=== PATIENT | female | born 1995 | race Caucasian/White ===

== ENCOUNTER → 2023-01-10 14:55 | Outpatient (CLI) | payer BC, SELFPAY ==
[2023-01-10 15:02] LABS: Influenza A, PCR Not Detected (NotDetected); Influenza B, PCR Not Detected (NotDetected)
[2023-01-10 15:41] LABS: Coronavirus 19, PCR Detected (NotDetected)
== END ==
PROVIDERS: Visit Provider Physician Assistant
DX: U07.1 COVID-19 (principal); Z20.822 Contact with and (suspected) exposure to COVID-19
CPT/HCPCS: 87636

== ENCOUNTER 2023-07-06 13:30 | Emergency (ER) | payer BC, SELFPAY ==
[2023-07-06 15:00] VITALS: PULSE 108; RESP 18; TEMP 36.6; O2SAT 100; BMI 28.5
--- NOTE | 2023-07-06 15:26 | EXP.UTC ---
Discharge Plan Disposition Patient Disposition: Home, Self-Care Condition: Good Prescriptions Prescriptions: New azithromycin 250 mg tablet 250 mg PO DIRECTED Qty: 6 0RF Rx Instructions: Take two (2) tablets on day #1, then one (1) tablet day #2 thru #5 fluticasone propionate 50 mcg/actuation spray,suspension 1 spray intranasal DAILY Qty: 9.9 0RF No Action buspirone 7.5 mg tablet 7.5 mg PO DAILY Patient Comments: TAKE 1 TABLET BY MOUTH TWICE DAILY norgestimate-ethinyl estradiol [Sprintec (28)] 0.25-35 mg-mcg tablet 1 tab PO DAILY Referrals Follow up/Referrals: Emily Zambrano PA [Primary Care Provider] - See instructions Activity Restrictions/Add. Instructions Additional Instructions/Restrictions: Start antibiotic patient to take as ordered for a full length of time even if you feel better. Sinus infections do not get better overnight. It may take 2-3 days to notice much improvement so be sure to use conservative measures as discussed for symptoms. Flonase 1 spray each nostril daily to help with nasal congestion, sinus and ear pressure/information Increase fluids Humidifier/vaporizer as needed Tylenol and ibuprofen as needed for fever or pain. If symptoms do not improve or get worse return or be seen in the ER Follow-up with primary care this week Clinical Impressions Clinical Impression: Sinusitis Instructions Patient Instructions: DI for Sinusitis Discharge ED Provider: Dax ([facility] [facility] [place] General Stated complaint: sninus pressure headache congestion cough Mode of Arrival: Ambulatory Source of Information: Patient Limitations: No Limitations Time Seen by Provider: 07/06/23 15:26 Description of Symptoms (Recalled from Triage Doc. by RN): sinus pressure, tenderness, face face pain, green drainage HEENT Symptoms (Recalled from RN notes): Yes Resp Symptoms (Recalled from RN notes): No Skin Symptoms (Recalled from RN notes): No MS Symptoms (Recalled from RN notes): No Functional Status (Recalled from RN notes): n/a History of Present Illness Provider Complaint: 28 yr old female presents for c/o sinus pressure, tenderness, face face pain, green drainage Related Data Home Medications Medication Instructions Recorded Confirmed buspirone 7.5 mg tablet 7.5 mg PO DAILY 02/27/23 07/06/23 norgestimate 0.25 mg-ethinyl 1 tab PO DAILY 02/27/23 07/06/23 estradiol 35 mcg tablet (Sprintec (28)) Previous Rx's Medication Instructions Recorded azithromycin 250 mg tablet 250 mg PO DIRECTED #6 tabs 07/06/23 fluticasone propionate 50 1 spray intranasal DAILY #9.9 mL 07/06/23 mcg/actuation nasal spray,suspension Allergies Allergy/AdvReac Type Severity Reaction Status Date / Time Penicillins Allergy Verified 07/06/23 15:26 Worker's Comp Is this a Worker's Comp case?: No [facility] Disclaimer: The information contained in this section may have been updated after the patient was seen, as this information can be updated by other users. Medical History (Reviewed 07/06/23 @ 15:28 by Ann-Marie Verduzco ([facility]), [employer]) Perforated left tympanic membrane on examination Anxiety Sarcoidosis of lung Family History (Reviewed 07/06/23 @ 15:28 by Ann-Marie Verduzco ([facility]), [employer]) Diabetes Coronary artery disease Hyperlipidemia Heart attack Hypertension Social History (Reviewed 07/06/23 @ 15:28 by Ann-Marie Verduzco ([facility]), [employer]) Smoking Status: Never smoker alcohol intake: current alcohol intake frequency: holidays/special occasions only current occupational status: employed Travel in the last 8 weeks: None ROS Obtained: Yes All systems reviewed & no additional complaints except as documented Constitutional Constitutional: Reports system reviewed and no additional complaints, except as documented and Reports headache(s) Eyes Eyes: Reports system reviewed and no additional complaints, except as documented ENT Ears, Nose, Mouth, and Throat: Reports system reviewed and no additional complaints, except as documented, Reports as per HPI, Reports headache(s), Reports sinus pain and Reports sinus pressure Cardiovascular Cardiovascular: Reports system reviewed and no additional complaints, except as documented Respiratory Respiratory: Reports system reviewed and no additional complaints, except as documented Musculoskeletal Musculoskeletal: Reports system reviewed and no additional complaints, except as documented Integumentary/Breasts Skin/Breast: Reports system reviewed and no additional complaints, except as documented Neurologic Neurologic: Reports system reviewed and no additional complaints, except as documented and Reports headache(s) Endocrine Endocrine: Reports system reviewed and no additional complaints, except as documented Hematologic/Lymphatic Henatologic/Lymphatic: Reports system reviewed and no additional complaints, except as documented Allergic/Immunologic Allergic/Immunologic: Reports system reviewed and no additional complaints, except as documented Physical Exam General General appearance: alert and in no apparent distress Head Head exam: atraumatic Eye Eye exam: Present normal appearance and PERRL ENT ENT exam: Present normal oropharynx and TM's normal bilaterally Expanded ENT Exam Nose exam: Present sinus tenderness Respiratory Respiratory exam: Present normal lung sounds bilaterally Cardiovascular Cardiovascular exam: Present regular rate and normal rhythm Neurological Exam Neurological exam: Present alert and oriented X3 Skin Skin exam: Present warm and intact Medical Decision Making Medical Records Medical records reviewed: Yes I reviewed the patient's medical records. Laci Inquiry Pt receiving controlled substance: No Laci was queried for this patient: No Vital Signs: 07/06/23 15:00 Temperature 97.9 F Temperature Source Oral Pulse Rate [Right Radial] 108 H Respiratory Rate 18 02 Sat by Pulse Oximetry 100 Oxygen Delivery Method Room Air
[2023-07-06 15:43] VITALS: BP 166/91; PULSE 108; RESP 18; TEMP 36.6; O2SAT 100
--- NOTE | 2023-07-06 15:43 | PC.NURSE ---
Pt is very anxious about being in a medical setting.
== END 2023-07-06 15:43 | disposition home or self-care (01) ==
PROVIDERS: Emergency Provider Nurse Practitioner Family; PCP Physician Assistant
DX: J01.90 Acute sinusitis, unspecified (principal); R51.9 Headache, unspecified; R09.81 Nasal congestion
CPT/HCPCS: 99204; 99212; G0463

== ENCOUNTER 2023-07-09 11:00 | Outpatient (POV) | payer BC, SELFPAY | END 2023-07-09 23:59 | disposition home or self-care (01) | LOC: SC 11:01 | PROVIDERS: Visit Provider Specialist/Technologist | DX: Z00.00 Encounter for general adult medical examination without abnormal findings (principal) ==

== ENCOUNTER 2024-02-01 09:48 | Emergency (ER) | payer BC, SELFPAY ==
[2024-02-01 10:03] VITALS: BP 153/93; PULSE 80; RESP 18; TEMP 36.7; O2SAT 99; BMI 28.8
--- NOTE | 2024-02-01 10:09 | EXP.UTC ---
Discharge Plan Disposition Patient Disposition: Home, Self-Care Condition: Good Prescriptions Prescriptions: New moxifloxacin [Vigamox] 0.5 % drops 1 drp Eye-Left TID 7 Days Qty: 3 0RF No Action buspirone 7.5 mg tablet 7.5 mg PO DAILY Patient Comments: TAKE 1 TABLET BY MOUTH TWICE DAILY norgestimate-ethinyl estradiol [Sprintec (28)] 0.25-35 mg-mcg tablet 1 tab PO DAILY Referrals Follow up/Referrals: Emily Zambrano PA [Primary Care Provider] - See instructions Activity Restrictions/Add. Instructions Additional Instructions/Restrictions: Use the eye drops as directed. Strict hand washing in the house hold, because conjunctivitis is very contagious. Follow up with your regular doctor. Don't wear your contact lens for at least 1 week (unless you are told different by your eye doctor). GO TO THE ER FOR ANY WORSENING SYMPTOMS OR CONCERNS Clinical Impressions Clinical Impression: Conjunctivitis of left eye, Wears contact lenses Instructions Patient Instructions: DI for Conjunctivitis Print Language Print Language: Greenlandic Discharge ED Provider: [facility] General Stated complaint: Left eye Discomfort and discharge Mode of Arrival: Ambulatory Source of Information: Patient Time Seen by Provider: 02/01/24 10:09 Description of Symptoms (Recalled from Triage Doc. by RN): POSSIBLE SCRATCH ON LEFT EYE, REDNESS AND DISCHARGE HEENT Symptoms (Recalled from RN notes): Yes Resp Symptoms (Recalled from RN notes): No Skin Symptoms (Recalled from RN notes): No MS Symptoms (Recalled from RN notes): No Functional Status (Recalled from RN notes): WNL History of Present Illness Provider Complaint: She states that for the past 2 days she has had left eye redness and irritation. She denies any known injury or foreign body. She is a contact lens wearer. Related Data Home Medications ?Medication ?Instructions ?Recorded ?Confirmed buspirone 7.5 mg tablet 7.5 mg PO DAILY 02/27/23 07/23/23 norgestimate 0.25 mg-ethinyl 1 tab PO DAILY 02/27/23 02/01/24 estradiol 35 mcg tablet (Sprintec (28)) Previous Rx's ?Medication ?Instructions ?Recorded moxifloxacin 0.5 % eye drops 1 drp Eye-Left TID 7 days #3 mL 02/01/24 (Vigamox) Allergies Allergy/AdvReac Type Severity Reaction Status Date / Time Penicillins Allergy Verified 07/23/23 15:55 Worker's Comp Is this a Worker's Comp case?: No [facility] Disclaimer: The information contained in this section may have been updated after the patient was seen, as this information can be updated by other users. Medical History (Updated 02/01/24 @ 10:58 by Victorino Mensah APRN) Conductive hearing loss Perforated left tympanic membrane on examination Anxiety Sarcoidosis of lung Family History Other Coronary artery disease Diabetes Heart attack Hyperlipidemia Hypertension Social History Smoking Status: Never smoker alcohol intake: current alcohol intake frequency: holidays/special occasions only current occupational status: employed ROS Obtained: Yes All systems reviewed & no additional complaints except as documented Constitutional Constitutional: Denies chills and Denies fever(s) Eyes Eyes: Reports as per HPI, Denies change in vision and Reports eye discharge ENT Ears, Nose, Mouth, and Throat: Denies dizziness, Denies otalgia and Denies sore throat Cardiovascular Cardiovascular: Denies chest pain Respiratory Respiratory: Denies shortness of breath, Denies chest congestion, Denies cough, Denies stridor and Denies wheezing Gastrointestinal Gastrointestingal: Denies nausea or vomiting Musculoskeletal Musculoskeletal: Reports system reviewed and no additional complaints, except as documented and Denies arthralgias Integumentary/Breasts Skin/Breast: Denies rash Neurologic Neurologic: Denies dizziness and Denies paresthesias Allergic/Immunologic Allergic/Immunologic: Denies wheezing Physical Exam General General appearance: alert and in no apparent distress Head Head exam: atraumatic, normocephalic and normal inspection Eye Eye exam: Present PERRL and EOMI Expanded Eye Exam Eyelids: left: normal inspection and right: erythema Pupils: Left: size (2), Right: size (2) and Bilateral: regular, round and reactive Sclera/Conjunctival: left: normal inspection and right: injection and exudate ENT ENT exam: Present normal exam, normal oropharynx, mucous membranes moist, TM's normal bilaterally and normal external ear exam Neck Neck exam: Present normal inspection, full ROM and trachea midline; Absent meningismus or lymphadenopathy Chest Chest inspection: Present normal inspection and symmetric chest wall rise; Absent tenderness Respiratory Respiratory exam: Present normal lung sounds bilaterally; Absent respiratory distress Cardiovascular Cardiovascular exam: Present regular rate and normal rhythm; Absent JVD Abdominal Exam Abdominal exam: Present soft and normal bowel sounds; Absent distention, tenderness or guarding Extremities Exam Extremities exam: Present normal inspection, full ROM and normal capillary refill; Absent calf tenderness Back Exam Back exam: Present normal inspection; Absent tenderness Neurological Exam Neurological exam: Present alert and oriented X3 Psychiatric Psychiatric exam: Present normal affect and normal mood Skin Skin exam: Present warm, dry, intact and normal color Lymphatic Lymphatic Findings: no adenopathy Medical Decision Making Medical Records Medical records reviewed: No I reviewed the patient's medical records. Screening: Per USPSTF and CDC recommendations, given the prevalence of disease in our region, it is our hospital?s policy to screen for HIV and viral Hepatitis for all patients aged 18 and over and those with ongoing risk factors. Laci Inquiry Pt receiving controlled substance: No Vital Signs: 02/01/24 10:03 Temperature 98.1 F Temperature Source Oral Pulse Rate [Left Radial] 80 Respiratory Rate 18 Blood Pressure [Left Arm] 153/93 H Blood Pressure Mean [Left Arm] 113 02 Sat by Pulse Oximetry 99 Procedures Risk/Benefits of Procedure(s) Were Explained: Yes Eye Exam/FB Removal Location: eye (L) Topical anesthetic used: tetracaine Fluorescein Stick(s) used: Yes Time Out performed: Yes Procedure performed under: direct visualization with magnification Foreign body: other (none) Evidence of corneal penetration: No Eye irrigated w/saline (#ccs): 25 Patient tolerated procedure: well and no complications Complications: other (She tolerated this well, no corneal abrasion, foreign body, and evidence of keratitis was noted. )
[2024-02-01 11:01] VITALS: BP 153/93; PULSE 80; RESP 18; TEMP 36.7
[2024-02-01] MEDS: TETRACAINE 0.5% OPTH SOL 15ML OP (11:06)
[2024-02-01] MEDS: EYE WASH IRRIGATION SOLN 118ML BOTTLE 120 ML OP (11:06)
== END 2024-02-01 11:06 | disposition home or self-care (01) ==
PROVIDERS: Emergency Provider Nurse Practitioner Family; PCP Physician Assistant
DX: H10.32 Unspecified acute conjunctivitis, left eye (principal); H57.12 Ocular pain, left eye; H57.9 Unspecified disorder of eye and adnexa; Z97.3 Presence of spectacles and contact lenses
CPT/HCPCS: 99212; G0381

== ENCOUNTER 2024-05-27 01:49 | Day surgery (SDC) | payer BC, SELFPAY ==
[2024-05-27] VITALS (22 sets, daily range): BP systolic 107–153; BP diastolic 62–103; PULSE 70–136; RESP 16–18; TEMP 36.6–43; O2SAT 96–100; BMI 29.0
[2024-05-27] MEDS: MIDAZOLAM 5MG/ML 1ML VIAL 5 MG IM (02:07)
--- NOTE | 2024-05-27 02:29 | CT_ITS ---
PROCEDURE INFORMATION: Exam: CT Abdomen And Pelvis With Contrast Exam date and time: 05/27/2024 4:48 AM Age: 29 years old Clinical indication: Abdominal pain; Additional info: R mid abd pain worsening w/ nausea TECHNIQUE: Imaging protocol: Computed tomography of the abdomen and pelvis with contrast. Radiation optimization: All CT scans at this facility use at least one of these dose optimization techniques: automated exposure control; mA and/or kV adjustment per patient size (includes targeted exams where dose is matched to clinical indication); or iterative reconstruction. Contrast material: ISOVUE; Contrast volume: 75 ml; Contrast route: IV; COMPARISON: No relevant prior studies available. FINDINGS: Lungs: Lung bases are clear as visualized. Heart: Base of heart is unremarkable as visualized. Liver: Superior right hepatic lobe hypodensity, subcentimeter, likely medical field representative of benign cyst. Gallbladder and biliary ducts: Normal. No calcified stones. No ductal dilation. Pancreas: Normal. No ductal dilation. Spleen: Normal. No splenomegaly. Adrenal glands: Normal. No mass. Kidneys and ureters: Normal. No hydronephrosis. Stomach and bowel: Moderate to severe colonic stool burden. Appendix: Fluid-filled and dilated appendix reaching up to 1 cm in diameter. Periappendiceal fat stranding is seen. Appendiceal gordon appear to enhance. Intraperitoneal space: Pelvic physiologic free fluid. Vasculature: Unremarkable. No abdominal aortic aneurysm. Lymph nodes: Prominent right lower quadrant lymph nodes. Urinary bladder: Unremarkable as visualized. Reproductive: Unremarkable as visualized. Bones/joints: Unremarkable. No acute fracture. Soft tissues: Unremarkable. IMPRESSION: Appendicitis without evidence for rupture or rim enhancing collection.
--- NOTE | 2024-05-27 02:42 | PC.NURSE ---
Patient refuses to wear monitoring equipment. Will not wear blood pressure cuff, O2 probe, or cardiac monitoring. Patient is alert and oriented. Risks/benefits explained.
--- NOTE | 2024-05-27 03:07 | ED_ITS ---
Discharge Plan Disposition Patient Disposition: Admitted Condition: Fair Prescriptions Prescriptions: No Action buspirone 7.5 mg tablet 7.5 mg PO DAILY Patient Comments: TAKE 1 TABLET BY MOUTH TWICE DAILY norgestimate-ethinyl estradiol [Sprintec (28)] 0.25-35 mg-mcg tablet 1 tab PO DAILY moxifloxacin [Vigamox] 0.5 % drops 1 drp Eye-Left TID 7 Days Qty: 3 0RF Referrals Follow up/Referrals: Emily Zambrano PA [Primary Care Provider] - See instructions Clinical Impressions Clinical Impression: Panic attack, Right sided abdominal pain, Anxiety, Acute appendicitis Instructions Patient Instructions: DI for Acute Abdominal Pain Print Language Print Language: Divehi Discharge ED Provider: Poonam Ayala General Adult HPI General Chief complaint: Abdominal Pain Stated complaint: abd pain, nausea, vomiting Time Seen by Provider: 05/27/24 02:00 Mode of Arrival: Ambulatory Source of Information: Patient Description of Symptoms (Recalled from ER Triage Doc. by RN): Patient complains of abdominal pain since 9pm. States it is to the right side of her belly button. Patient states she has severe anxiety. History of Present Illness HPI narrative: 29-year-old female presents to the ER with complaints of 5 hours of right sided abdominal pain. She states it is just to the right of the bellybutton seems to be getting worse. She has had nausea but no other associated symptoms. She has severe anxiety and presents hyperventilating, tearful, shaking, and refusing to be touched by nursing, screaming when the blood pressure cuff inflates. She reports severe anxiety of anything medical because I cannot control my body . She does not report any fevers, chills, chest pain, cough, congestion, dysuria, hematuria, or other associated symptoms at this time Related Data Home Medications ?Medication ?Instructions ?Recorded ?Confirmed buspirone 7.5 mg tablet 7.5 mg PO DAILY 02/27/23 07/23/23 norgestimate 0.25 mg-ethinyl 1 tab PO DAILY 02/27/23 02/01/24 estradiol 35 mcg tablet (Sprintec (28)) Previous Rx's ?Medication ?Instructions ?Recorded moxifloxacin 0.5 % eye drops 1 drp Eye-Left TID 7 days #3 mL 02/01/24 (Vigamox) Allergies Allergy/AdvReac Type Severity Reaction Status Date / Time Penicillins Allergy Verified 07/23/23 15:55 [facility] Disclaimer: The information contained in this section may have been updated after the patient was seen, as this information can be updated by other users. Medical History (Updated 05/27/24 @ 06:08 by Poonam Ayala MD) Conductive hearing loss Perforated left tympanic membrane on examination Anxiety Sarcoidosis of lung Family History Other Coronary artery disease Diabetes Heart attack Hyperlipidemia Hypertension Social History Smoking Status: Never smoker alcohol intake: current alcohol intake frequency: holidays/special occasions only current occupational status: employed Travel in the last 8 weeks: None Have you lived/traveled outside [place] in past 30 days?: No Contact w/someone who lives/traveled outside US past 30 days?: No Exposure to someone with infectious disease in past 14 days?: No Do you have a fever (greater than 100.4 F or 38 C)?: No Have you tested positive for COVID-19: No Exposed to someone with COVID-19 in past 14 days?: No Do you have a sore throat?: No Do you have a cough?: No Do you have any weakness?: No Do you have any diarrhea?: No Are you experiencing any unusual bleeding?: No Do you have any muscle aches/pain?: No Do you have any abdominal pain?: Yes Are you experiencing loss of taste or smell?: No ROS Obtained: Yes Systems reviewed as appropriate & no additional complaints except as documented Per HPI Physical Exam General General appearance: alert, anxious and in distress (With severe anxiety) Comment: Nontoxic Head Head exam: atraumatic and normocephalic Eye Eye exam: Present PERRL and EOMI ENT ENT exam: Present mucous membranes moist Neck Neck exam: Present normal inspection and full ROM Chest Chest inspection: Present symmetric chest wall rise Respiratory Respiratory exam: Present normal lung sounds bilaterally; Absent respiratory distress, wheezes or stridor Cardiovascular Cardiovascular exam: Present normal rhythm and tachycardia Abdominal Exam Abdominal exam: Present soft, tenderness (Tenderness to palpation of the right periumbilical area; mild right upper quadrant tenderness, no right lower quadrant tenderness) and guarding (Voluntary); Absent distention, rebound or rigidity Extremities Exam Extremities exam: Present full ROM; Absent edema Neurological Exam Neurological exam: Present alert and oriented X3; Absent motor sensory deficit Psychiatric Psychiatric exam: Present anxious (Severely anxious, tearful, shaky, hyperventilating, being irrational but able to redirect with significant effort) Skin Skin exam: Present warm and dry Medical Decision Making Medical Records Medical records reviewed: Yes I reviewed the patient's medical records. Screening: Per USPSTF and CDC recommendations, given the prevalence of disease in our region, it is our hospital?s policy to screen for HIV and viral Hepatitis for all patients aged 18 and over and those with ongoing risk factors. MR Comment: Patient was seen in [facility] in February 2020 for and prescribed moxifloxacin for conjunctivitis Laci Inquiry Pt receiving controlled substance: No Vital Signs: 05/27/24 02:00 05/27/24 03:29 05/27/24 03:30 Temperature 97.9 F Temperature Source Oral Pulse Rate 89 87 Pulse Rate [Right Radial] 136 H Respiratory Rate 18 Blood Pressure Blood Pressure [Right Arm] 153/103 H Blood Pressure Mean [Right Arm] 119 Blood Pressure Source Blood Pressure Source [Right Arm] Automatic Cuff Blood Pressure Position Blood Pressure Position [Right Arm] Supine 02 Sat by Pulse Oximetry 98 100 100 Oxygen Delivery Method Room Air 05/27/24 03:45 05/27/24 04:20 05/27/24 04:30 Temperature Temperature Source Pulse Rate 94 H 87 88 Pulse Rate [Right Radial] Respiratory Rate Blood Pressure Blood Pressure [Right Arm] Blood Pressure Mean [Right Arm] Blood Pressure Source Blood Pressure Source [Right Arm] Blood Pressure Position Blood Pressure Position [Right Arm] 02 Sat by Pulse Oximetry 99 100 99 Oxygen Delivery Method 05/27/24 04:54 05/27/24 05:00 05/27/24 05:15 Temperature Temperature Source Pulse Rate 89 82 87 Pulse Rate [Right Radial] Respiratory Rate Blood Pressure Blood Pressure [Right Arm] Blood Pressure Mean [Right Arm] Blood Pressure Source Blood Pressure Source [Right Arm] Blood Pressure Position Blood Pressure Position [Right Arm] 02 Sat by Pulse Oximetry 98 98 98 Oxygen Delivery Method 05/27/24 05:30 05/27/24 05:45 05/27/24 06:19 Temperature 98.9 F Temperature Source Oral Pulse Rate 86 73 Pulse Rate [Right Radial] 78 Respiratory Rate 16 Blood Pressure Blood Pressure [Right Arm] 148/90 H Blood Pressure Mean [Right Arm] 109 Blood Pressure Source Blood Pressure Source [Right Arm] Automatic Cuff Blood Pressure Position Blood Pressure Position [Right Arm] Supine 02 Sat by Pulse Oximetry 99 99 98 Oxygen Delivery Method 05/27/24 06:30 Temperature 98.9 F Temperature Source Oral Pulse Rate 78 Pulse Rate [Right Radial] Respiratory Rate 16 Blood Pressure 148/90 H Blood Pressure [Right Arm] Blood Pressure Mean [Right Arm] Blood Pressure Source Automatic Cuff Blood Pressure Source [Right Arm] Blood Pressure Position Supine Blood Pressure Position [Right Arm] 02 Sat by Pulse Oximetry Oxygen Delivery Method Room Air Lab Data Lab Results 05/27/24 03:21: Sodium 137, Potassium 4.5, Chloride 104, Carbon Dioxide 25, Anion Gap 12.5, BUN 14, Creatinine 0.60, Estimated Creat Clear 185, Estimated GFR 119, Est GFR ( Amer) 144, Glucose 107 H, Calcium 9.6, Total Bilirubin 0.8, AST 41 H, ALT 19, Alkaline Phosphatase 53, Total Protein 7.4, Albumin 4.6, Globulin 2.8, Albumin/Globulin Ratio 1.6, Serum HCG, Qual Negative 05/27/24 04:42: WBC 16.0 H, RBC 5.03, Hgb 14.3, Hct 42.8, MCV 85.1, MCH 28.4, MCHC 33.4, RDW 12.3, Plt Count 195, MPV 10.4, Neut % (Auto) 86.9 H, Lymph % (Auto) 4.8 L, [place] % (Auto) 6.8, Eos % (Auto) 0.0 L, Baso % (Auto) 0.3, Neut # (Auto) 13.9 H, Lymph # (Auto) 0.8, [place] # (Auto) 1.1 H, Eos # (Auto) 0.0, Baso # (Auto) 0.1, Total Counted 100, Neutrophils % (Manual) 92 H, Lymphocytes % (Manual) 5 L, Monocytes % (Manual) 3, Platelet Estimate Normal, Stomatocytes 1+, Lactate 1.7 05/27/24 06:02: Urine Color Yellow, Urine Appearance Clear, Urine pH 7.0, Ur Specific [place] <= 1.005, Urine Protein Negative, Urine Glucose (UA) Negative, Urine Ketones Negative, Urine Blood Negative, Urine Nitrate Negative, Urine Bilirubin Negative, Urine Urobilinogen 0.2, Ur Leukocyte Esterase Negative 05/27/24 04:42 05/27/24 03:21 Orders (Tests/Meds): ED MEDICATIONS Discontinued Medications Generic Name Dose Route Start Last Admin Trade Name Kiera PRN Reason Stop Dose Admin Alprazolam 2 mg 05/27/24 03:21 05/27/24 03:26 Alprazolam 1mg Tablet PO 05/27/24 03:22 Not Given ONCE ONE Alprazolam 2 mg 05/27/24 03:25 05/27/24 03:26 Alprazolam 0.5mg Tablet PO 05/27/24 03:26 2 mg ONCE ONE Administration Haloperidol Lactate 5 mg 05/27/24 04:13 05/27/24 04:15 Haloperidol Lactate 5 Mg/Ml Vial IM 05/27/24 04:14 5 mg ONCE ONE Administration Cefepime HCl 2 gm/ Sodium 100 mls @ 200 mls/hr 05/27/24 06:02 05/27/24 06:05 Chloride IV 05/27/24 06:31 200 mls/hr ONCE ONE Administration Metronidazole 500 mg in 100 mls @ 100 mls/hr 05/27/24 06:02 05/27/24 06:09 Flagyl 500mg/100ml Ivpb IV 05/27/24 07:01 100 mls/hr ONCE ONE Administration Iopamidol 75 ml 05/27/24 04:54 05/27/24 04:55 Iopamidol-370 (76%);100ml Bottle IV 05/27/24 04:55 75 ml ONCE ONE Administration Lorazepam 1 mg 05/27/24 02:29 05/27/24 02:45 Lorazepam 1mg Tablet PO 05/27/24 02:30 Not Given ONCE ONE Midazolam HCl 5 mg 05/27/24 02:04 05/27/24 02:07 Midazolam 5mg/Ml 1ml Vial IM 05/27/24 02:05 5 mg ONCE ONE Administration ORDERS Category Date Time Status CT abdomen pelvis w con Stat Cat Scan 05/27/24 02:29 Completed Complete Blood Count Auto Diff Stat Lab 05/27/24 04:42 Completed Comprehensive Metabolic Panel Stat Lab 05/27/24 03:21 Completed HCG Qualitative, Serum Stat Lab 05/27/24 03:21 Completed Lactic Acid Stat Lab 05/27/24 04:42 Completed Urinalysis and Microscopic Stat Lab 05/27/24 06:02 Results Medical Decision Narrative: In summary, this 29-year-old female with comorbidities described in the HPI which are not at goal therapy presents to the emergency department today with right side abdominal pain. On initial evaluation patient is tachycardic, anxious, crying, shaking, exam otherwise notable for mid abdominal tenderness to palpation with voluntary guarding, no rebound. Differential diagnosis includes but is not limited to anxiety, panic attack, cholelithiasis, cholecystitis, transaminitis, appendicitis, constipation, mesenteric adenitis, viral syndrome, UTI, , among others. Based on these concerns, I ordered serum labs, CT imaging, urine studies. Patient was so profoundly anxious that she asked about every single thing I examined during the physical exam. She would not allow vitals to be taken without screaming and jumping. She would not allow nursing to obtain an IV. She wanted something to sedate and take her anxiety away. After discussion, she agreed to IM Versed. This was administered but was not enough. She reportedly takes 3 mg of p.o. Xanax before any medical encounter and then often gets additional medications when she arrives. She does not know what else she gets given. She received oral Xanax in addition to the Versed that she has already received. We were able to obtain a small amount of blood but she then jumped, screamed, and ripped out her IV. She was screaming and yelling about how painful the tourniquet was before she was even stuck with a needle for repeat IV attempt. It had been 2-1/2 hours of attempting to obtain an IV and ease the patient's anxiety unsuccessfully. I had shared decision-making discussion with patient and at bedside about next steps. Patient believes she wants more medications. stated she basically has to be sedated for any procedure. I explained the risks of this. After shared decision making, she elected to have IM antipsychotic administered. I selected intramuscular route due to timing of onset. Patient understands the risks and potential side effects and would prefer these rather than being keenly aware of what is going on around her at this time. I do have concerns for possible goals of secondary gain versus severe anxiety/psychosis. Patient is irrational but is oriented and understanding everything we are discussing. Francis administered. There was a small amount of blood able to be drawn of the initial IV, I reviewed labs which demonstrated unremarkable CMP, test negative. Additional labs pending at this time, awaiting further IV attempts while patient hopefully relaxes from the medications that have been administered. Patient was finally relax enough after the medications above being administered that we are able to obtain the majority of the remaining labs except coag studies. Labs reviewed by me demonstrate leukocytosis but no anemia, UA negative for findings of infection. Lactic normal at 1.7. She was also able to go immediately for CT. CT abdomen pelvis personally interpreted demonstrates right sided colonic stool burden, but does appear to be inflammation in the right lower quadrant concerning for appendicitis, however with her stool burden I am having difficulty fully identifying and measuring the appendix. I do not appreciate evidence of perforation. I received a call from radiology that patient does have an enlarged appendix at 1 cm with evidence of reactive lymphadenopathy in the area but no evidence of perforation. Patient has acute appendicitis. Patient was started on cefepime and Flagyl for intra-abdominal infection treatment since she has allergy to penicillins. Patient and were made aware of her findings and understands the need for general surgery consult. I spoke with the surgeon Dr. Padgett who recommends keeping the patient in the ER at this time and he plans to take the patient to the OR for likely outpatient surgery. Patient agreeable. is still at bedside and is also agreeable. He will have to provide consent for procedure since patient has received significant sedating medications. Patient taken to the OR in stable condition. Critical Care Critical Care Time Critical Care Time: No
[2024-05-27] MEDS: ALPRAZolam 0.5MG TABLET 2 MG PO (03:26)
[2024-05-27 03:42] LABS: Albumin Level 4.6 g/dl (3.5-5.0); Chloride 104 mmol/L (98-107); Potassium 4.5 mmoL/L (3.5-5.1); Sodium 137 mmol/L (136-145)
[2024-05-27 03:44] LABS: Blood Urea Nitrogen 14 mg/dl (7-17); Creatinine Clearance Estimated 185 mL/min (50-200); Estimated Glomerular Filt Rate 119 ml/min (>60); GFR (African American) 144 ML/MIN (>60); HCG Qualitative, Serum Negative (Negative)
[2024-05-27 03:45] LABS: Alanine Aminotransferase 19 U/L (12-78); Albumin/Globulin Ratio 1.6 (1.1-1.8); Alkaline Phosphatase 53 U/L (38-126); Anion Gap 12.5 mEq/L (5-15); Aspartate Amino Transferase 41 U/L (14-36); Bilirubin,Total 0.8 mg/dl (0.2-1.3); Calcium 9.6 mg/dl (8.4-10.2); Carbon Dioxide 25 mmol/L (22.0-30.0); Globulin 2.8 g/dL (1.3-3.2); Glucose 107 mg/dl (74-100); Total Protein,Serum 7.4 g/dl (6.3-8.2)
--- NOTE | 2024-05-27 04:05 | PC.NURSE ---
Patient refuses to allow IV stick. Provider in room with patient. We have been attempting to calm patient down enough for an IV for 2 hours now.
--- NOTE | 2024-05-27 04:08 | PC.NURSE ---
This RN at bedside and administered IM midazolam to help relax the patient, patient tolerated that well. After injection I went back in to insert an IV catheter, patient began to freak out again and pulled the IV out after three tubes of blood were collected. Spoke with MD regarding the the patients anxiety and agitation and more sedatives were ordered PO, This RN administered the Xanax as ordered, patients spouse came out and spoke with nursing staff that she was ready to try the IV insertion again. This RN and Yen RN went into room to attempt once more, patient was uncooperative with the procedure and began bending her arm and screaming i cant do this . Spoke with MD once more and she is currently at bedside to speak with the patient to determine plan of care.
[2024-05-27] MEDS: HALOPERIDOL LACTATE 5 MG/ML VIAL IM (04:15)
[2024-05-27 04:55] LABS: Basophils # 0.1 K/mm3 (0-0.2); Basophils % 0.3 % (0.1-2.0); Hematocrit 42.8 % (37.0-47.0); Hemoglobin 14.3 g/dL (12.2-16.2); Lymphocytes # 0.8 K/mm3 (0.7-4.5); Lymphocytes % 4.8 % (10-50); Mean Corpuscular HGB Conc 33.4 g/dL (31.8-35.4); Mean Corpuscular Hemoglobin 28.4 pg (27.0-31.2); Mean Corpuscular Volume 85.1 fl (81-99); Mean Platelet Volume 10.4 fl (7.4-10.4); Monocytes # 1.1 K/mm3 (0.1-1.0); Monocytes % 6.8 % (1.7-9.3); Neutrophils # 13.9 K/mm3 (1.8-7.8); Neutrophils % 86.9 % (37.0-80.0); Platelet Count 195 K/mm3 (142-424); Red Blood Count 5.03 M/mm3 (4.20-5.40); Red Cell Distribution Width 12.3 % (11.5-17.5)
[2024-05-27] MEDS: IOPAMIDOL-370 (76%);100ML BOTTLE 75 ML IV (04:55)
[2024-05-27 05:00] LABS: MANUAL DIFFERENTIAL MANUAL DIFFERENTIAL (MANUAL DIFF)
[2024-05-27 05:04] LABS: Lactic Acid 1.7 mmol/L (0.7-2.1)
[2024-05-27 05:53] LABS: Lymphocytes % 5 % (10-50); Monocytes % 3 % (2-9); Neutrophils % 92 % (42-76); Platelet Estimate Normal; Stomatocytes 1+; Total Cells Counted 100
[2024-05-27] MEDS: CEFEPIME HCL 2 GM in 0.9 % SODIUM CHLORIDE 100 ML IV (06:05)
[2024-05-27 06:06] LABS: Microscopic, Urine URINE MICROSCOPIC (MICROSCOPIC)
[2024-05-27] MEDS: METRONIDAZ/SOD CHL 500 MG/100 ML PIGGYBACK 100 MG IV (06:09)
[2024-05-27 06:25] LABS: Appearance,Urine CLEAR (Clear); Bilirubin,Urine Negative (Negative); Blood, Urine Negative (Negative); Color,Urine YELLOW (Yellow); Glucose,Urine (UA) Negative (Negative); Ketones,Urine Negative (Negative); Leukocyte Esterase,Urine Negative (Negative); Nitrate,Urine Negative (Negative); Protein,Urine Negative (Negative); Specific Gravity, Urine <= 1.005 (1.005-1.030); Urobilinogen,Urine 0.2 EU/dl (0.2)
--- NOTE | 2024-05-27 06:40 | P.PNANES_ITS ---
[facility] Disclaimer: The information contained in this section may have been updated after the patient was seen, as this information can be updated by other users. Medical History (Updated 05/27/24 @ 06:08 by Poonam Ayala MD) Conductive hearing loss Perforated left tympanic membrane on examination Anxiety Sarcoidosis of lung Family History Other Coronary artery disease Diabetes Heart attack Hyperlipidemia Hypertension Social History Smoking Status: Never smoker alcohol intake: current alcohol intake frequency: holidays/special occasions only substance use type: denies use current occupational status: employed Travel in the last 8 weeks: None [facility] Anesthesia Checklist Patient Identification Patient Identification: Arm Band and Family Structural Data Admitted From: Emergency Dept Planned Operative Procedure/s: Emergency Appy Consent for Planned Operative Procedure(s) Verified: Yes Verified Documents: Surgical Consent and History and Physical NPO Status Verified Time NPO: 00:00 Additional verifications Patient : No Anesthesia Reactions: No Hx Blood Transfusions: No Blood Transfusion Reaction: No Cephalosporin Allergy: Yes Previous Colonoscopy: No Airway Assessment Mallampati Score:: Class II C-Spine Mobility Assessed: Yes TMJ Mobility Assessed: Yes Neurological Assessment Level of Consciousness: Drowsy and Sedated Hx Seizures: No Numbness or tingling in extremities: No Anesthesia Plan Anesthesia Risk discussed: Yes ASA Class: II Anesthesia Type: General
--- NOTE | 2024-05-27 06:41 | EXP.GEN.HP ---
HPI HPI HPI: This is a 29-year-old female who presents emergency department with increasing right lower quad abdominal pain. Evaluation included CT scan that showed changes consistent with appendicitis. The surgical service was consulted. Please see HPI/medical decision making forted from emergency department evaluation below. Forwarded from emergency department evaluation: 29-year-old female presents to the ER with complaints of 5 hours of right sided abdominal pain. She states it is just to the right of the bellybutton seems to be getting worse. She has had nausea but no other associated symptoms. She has severe anxiety and presents hyperventilating, tearful, shaking, and refusing to be touched by nursing, screaming when the blood pressure cuff inflates. She reports severe anxiety of anything medical because I cannot control my body . She does not report any fevers, chills, chest pain, cough, congestion, dysuria, hematuria, or other associated symptoms at this time Medical Decision Narrative: In summary, this 29-year-old female with comorbidities described in the HPI which are not at goal therapy presents to the emergency department today with right side abdominal pain. On initial evaluation patient is tachycardic, anxious, crying, shaking, exam otherwise notable for mid abdominal tenderness to palpation with voluntary guarding, no rebound. Differential diagnosis includes but is not limited to anxiety, panic attack, cholelithiasis, cholecystitis, transaminitis, appendicitis, constipation, mesenteric adenitis, viral syndrome, UTI, , among others. Based on these concerns, I ordered serum labs, CT imaging, urine studies. Patient was so profoundly anxious that she asked about every single thing I examined during the physical exam. She would not allow vitals to be taken without screaming and jumping. She would not allow nursing to obtain an IV. She wanted something to sedate and take her anxiety away. After discussion, she agreed to IM Versed. This was administered but was not enough. She reportedly takes 3 mg of p.o. Xanax before any medical encounter and then often gets additional medications when she arrives. She does not know what else she gets given. She received oral Xanax in addition to the Versed that she has already received. We were able to obtain a small amount of blood but she then jumped, screamed, and ripped out her IV. She was screaming and yelling about how painful the tourniquet was before she was even stuck with a needle for repeat IV attempt. It had been 2-1/2 hours of attempting to obtain an IV and ease the patient's anxiety unsuccessfully. I had shared decision-making discussion with patient and at bedside about next steps. Patient believes she wants more medications. stated she basically has to be sedated for any procedure. I explained the risks of this. After shared decision making, she elected to have IM antipsychotic administered. I selected intramuscular route due to timing of onset. Patient understands the risks and potential side effects and would prefer these rather than being keenly aware of what is going on around her at this time. I do have concerns for possible goals of secondary gain versus severe anxiety/psychosis. Patient is irrational but is oriented and understanding everything we are discussing. Haldol administered. There was a small amount of blood able to be drawn of the initial IV, I reviewed labs which demonstrated unremarkable CMP, test negative. Additional labs pending at this time, awaiting further IV attempts while patient hopefully relaxes from the medications that have been administered. Patient was finally relax enough after the medications above being administered that we are able to obtain the majority of the remaining labs except coag studies. Labs reviewed by me demonstrate leukocytosis but no anemia, UA negative for findings of infection. Lactic normal at 1.7. She was also able to go immediately for CT. CT abdomen pelvis personally interpreted demonstrates right sided colonic stool burden, but does appear to be inflammation in the right lower quadrant concerning for appendicitis, however with her stool burden I am having difficulty fully identifying and measuring the appendix. I do not appreciate evidence of perforation. I received a call from radiology that patient does have an enlarged appendix at 1 cm with evidence of reactive lymphadenopathy in the area but no evidence of perforation. Patient has acute appendicitis. Patient was started on cefepime and Flagyl for intra-abdominal infection treatment since she has allergy to penicillins. Patient and were made aware of her findings and understands the need for general surgery consult. I spoke with the surgeon Dr. Padgett who recommends keeping the patient in the ER at this time and he plans to take the patient to the OR for likely outpatient surgery. Patient agreeable. is still at bedside and is also agreeable. He will have to provide consent for procedure since patient has received significant sedating medications. Patient taken to the OR in stable condition. PFSH PFSH Disclaimer: The information contained in this section may have been updated after the patient was seen, as this information can be updated by other users. Medical History (Updated 05/27/24 @ 06:47 by Sherrie Fierro RN) Conductive hearing loss Perforated left tympanic membrane on examination Anxiety Sarcoidosis of lung Family History Other Coronary artery disease Diabetes Heart attack Hyperlipidemia Hypertension Social History Smoking Status: Never smoker alcohol intake: current alcohol intake frequency: holidays/special occasions only substance use type: denies use current occupational status: employed Travel in the last 8 weeks: None Meds Home Medications and Allergies Home Medications ?Medication ?Instructions ?Recorded ?Confirmed ?Type buspirone 7.5 mg tablet 7.5 mg PO DAILY 02/27/23 07/23/23 History norgestimate 0.25 mg-ethinyl 1 tab PO DAILY 02/27/23 02/01/24 History estradiol 35 mcg tablet (Sprintec (28)) moxifloxacin 0.5 % eye drops 1 drp Eye-Left TID 7 days #3 mL 02/01/24 Rx (Vigamox) New Prescriptions to Start Prescriptions: Allergies Allergy/AdvReac Type Severity Reaction Status Date / Time Penicillins Allergy Verified 07/23/23 15:55 Exam Data for Last 24 hours Vital signs and Labs for Last 24 Hours: Temp Pulse Resp BP Pulse Ox O2 Del Method 98.9 F 78 16 148/90 H 98 Room Air 05/27/24 06:30 05/27/24 06:30 05/27/24 06:30 05/27/24 06:30 05/27/24 06:19 05/27/24 06:30 Laboratory Results - last 24 hr 05/27/24 03:21: Sodium 137, Potassium 4.5, Chloride 104, Carbon Dioxide 25, Anion Gap 12.5, BUN 14, Creatinine 0.60, Estimated Creat Clear 185, Estimated GFR 119, Est GFR ( Amer) 144, Glucose 107 H, Calcium 9.6, Total Bilirubin 0.8, AST 41 H, ALT 19, Alkaline Phosphatase 53, Total Protein 7.4, Albumin 4.6, Globulin 2.8, Albumin/Globulin Ratio 1.6, Serum HCG, Qual Negative 05/27/24 04:42: WBC 16.0 H, RBC 5.03, Hgb 14.3, Hct 42.8, MCV 85.1, MCH 28.4, MCHC 33.4, RDW 12.3, Plt Count 195, MPV 10.4, Neut % (Auto) 86.9 H, Lymph % (Auto) 4.8 L, Bucks % (Auto) 6.8, Eos % (Auto) 0.0 L, Baso % (Auto) 0.3, Neut # (Auto) 13.9 H, Lymph # (Auto) 0.8, Bucks # (Auto) 1.1 H, Eos # (Auto) 0.0, Baso # (Auto) 0.1, Total Counted 100, Neutrophils % (Manual) 92 H, Lymphocytes % (Manual) 5 L, Monocytes % (Manual) 3, Platelet Estimate Normal, Stomatocytes 1+, Lactate 1.7 05/27/24 06:02: Urine Color Yellow, Urine Appearance Clear, Urine pH 7.0, Ur Specific Frederick <= 1.005, Urine Protein Negative, Urine Glucose (UA) Negative, Urine Ketones Negative, Urine Blood Negative, Urine Nitrate Negative, Urine Bilirubin Negative, Urine Urobilinogen 0.2, Ur Leukocyte Esterase Negative I & O for Last 24 hours: Intake & Output 05/24/24 05/25/24 05/26/24 05/27/24 11:59 11:59 11:59 11:59 Weight 185 lb Constitutional Constitutional: no acute distress *Routine HEENT Exam Head: Present normocephalic Eye: Absent periorbital swelling ENT: Present external ear normal *Routine Neck Exam Neck: Absent swelling Routine Chest/Breast/Axilla Exam Chest wall: Absent tenderness *Routine Respiratory Exam Respiratory: Absent respiratory distress *Routine Cardiovascular Exam Cardiovascular: Absent tachycardia *Routine Abdominal Exam Abdominal: Present tenderness *Routine Rectal Exam Rectal:: deferred *Routine Genitalia Exam Genitalia:: deferred *Routine Extremities Exam Extremities: Absent edema *Routine Skin Exam Skin: Absent erythema *Routine Neurological Exam Neurological: Absent facial asymmetry Routine Psychiatric Exam Psychiatric: Present unable to assess Comments: Haldol given in emergency department Results Results Lab Results Last 24 Hours:: Laboratory Results - last 24 hr 05/27/24 03:21: Sodium 137, Potassium 4.5, Chloride 104, Carbon Dioxide 25, Anion Gap 12.5, BUN 14, Creatinine 0.60, Estimated Creat Clear 185, Estimated GFR 119, Est GFR ( Amer) 144, Glucose 107 H, Calcium 9.6, Total Bilirubin 0.8, AST 41 H, ALT 19, Alkaline Phosphatase 53, Total Protein 7.4, Albumin 4.6, Globulin 2.8, Albumin/Globulin Ratio 1.6, Serum HCG, Qual Negative 05/27/24 04:42: WBC 16.0 H, RBC 5.03, Hgb 14.3, Hct 42.8, MCV 85.1, MCH 28.4, MCHC 33.4, RDW 12.3, Plt Count 195, MPV 10.4, Neut % (Auto) 86.9 H, Lymph % (Auto) 4.8 L, Bucks % (Auto) 6.8, Eos % (Auto) 0.0 L, Baso % (Auto) 0.3, Neut # (Auto) 13.9 H, Lymph # (Auto) 0.8, Bucks # (Auto) 1.1 H, Eos # (Auto) 0.0, Baso # (Auto) 0.1, Total Counted 100, Neutrophils % (Manual) 92 H, Lymphocytes % (Manual) 5 L, Monocytes % (Manual) 3, Platelet Estimate Normal, Stomatocytes 1+, Lactate 1.7 05/27/24 06:02: Urine Color Yellow, Urine Appearance Clear, Urine pH 7.0, Ur Specific Frederick <= 1.005, Urine Protein Negative, Urine Glucose (UA) Negative, Urine Ketones Negative, Urine Blood Negative, Urine Nitrate Negative, Urine Bilirubin Negative, Urine Urobilinogen 0.2, Ur Leukocyte Esterase Negative CT scan - abdomen: report reviewed and image reviewed CT scan - pelvis: report reviewed and image reviewed Assessment and Plan *Assessment and plan (1) Acute appendicitis: Status: Acute Qualifiers: Acute appendicitis type: with localized peritonitis Appendicitis gangrene presence: without gangrene Appendicitis perforation presence: without perforation Appendicitis abscess presence: without abscess Qualified Code(s): K35.30 - Acute appendicitis with localized peritonitis, without perforation or gangrene Category: Medical Code(s): K35.80 - Unspecified acute appendicitis Plan: Laparoscopic appendectomy I have discussed the risks and benefits including, but not limited to: Bleeding Infection Damage to surrounding tissue Inherent risks of sedation The patient's agrees to proceed (note that Haldol was given to patient in emergency department).
[2024-05-27 06:46] LABS: Squamous Epithelial Cell,Urine Occasional #/hpf (0-5)
[2024-05-27] MEDS: LIDOCAINE 1% 20ML MDV 20 ML (07:14)
[2024-05-27] MEDS: SODIUM CHLORIDE IRRIG SOLUTION 3,000 ML 3000 ML IR (07:15)
--- NOTE | 2024-05-27 08:05 | EXP.OP.NOTE ---
Date of procedure: 05/27/24 Pre-op Diagnosis:: Appendicitis Post-op Diagnosis:: Same Procedure performed:: Laparoscopic appendectomy Surgeon:: Haroon Padgett MD PHYSICAL CHEMISTRY PROFESSOR:: Tito Lombardo Anesthesia: LATISHA Estimated blood loss (mL): 15 Operative findings:: Enlarged/inflamed appendix Operative note:: After informed consent was obtained the patient was taken to the operating room and placed in the supine position. General anesthesia was induced and her abdomen was prepped and draped in a sterile fashion. After infiltration with local anesthetic a supraumbilical incision was made. A Veress needle was placed in position. The abdomen was insufflated. A 12 mm optical trocar was placed in position. Under direct visualization a 5 mm trocar was placed in the suprapubic position and an additional 5 mm trocar was placed in the left lower quadrant. The appendix was carefully elevated. Inflammation/enlargement confirmed. The mesoappendix was taken with harmonic brandon. The Endopath 45 stapling device was then utilized to transect the appendix at its base. The appendix was placed in a retrieval bag and removed through the supraumbilical trocar site. The entire region was thoroughly irrigated. No active bleeding or sign of injury was noted. All trocars were removed. Fascia at the supraumbilical trocar site was reapproximated with 0 Ethibond. Wounds were irrigated and skin was then closed with 4-0 Monocryl in a subcuticular fashion. Steri-Strips were applied and the patient's anesthetic agents were reversed. She was transferred to recovery in stable condition. Condition: stable Disposition: PACU Specimens:: Appendix Complications:: No immediate
--- NOTE | 2024-05-27 08:10 | EXP.ANES.I ---
[facility] Anesthesia Record Part I Anesthesia Record I Intake, IV Amount: 1,100 Hydration: Adequate Estimated blood loss (mL): 10 Urine output (mL): 200 Blood Products used (#): none Blood Pressure: 112/62 SaO2: 96 Pulse Rate: 73 Airway Patency: Patent Respiratory Rate: 16 Temperature: 97.8 F Patient is:: Drowsy and Stable Stable to PACU at:: 08:05
--- NOTE | 2024-05-28 07:16 | EXP.ANES.II ---
[facility] Anesthesia Record Part II Anesthesia Record Part II Discharge Time: 08:35 Destination: Surgical Day Care (OP Surgery) PACU nurse assessment reviewed?: Yes Patient Condition:: Good Anesthesia Complications:: None Swallowing reflex intact?: Yes Airway Patency: Patent Cyanosis?: No Blood Pressure: 129/65 SaO2: 96 Respiratory Rate: 16 Pulse Rate: 72 Temperature: 97.8 F Mental Status: Alert & Oriented Pain level:: 0 Nausea and/or vomitting:: None Intake, IV Amount: 0 Hydration: Adequate
[2024-05-28 07:19] VITALS: BP 129/65; PULSE 72; RESP 16; TEMP 36.6; O2SAT 96
== END 2024-05-27 09:36 | disposition home or self-care (01) ==
LOC: ER 06:08 → SDC 06:46
PROVIDERS: Emergency Provider Emergency Medicine; PCP Physician Assistant; Visit Provider Surgery
PROC: (CPT 44950; principal; 2024-05-27 07:30)
DX: K35.30 Acute appendicitis with localized peritonitis, without perforation or gangrene (principal)
CPT/HCPCS: 44970; 74177; 80053; 81001; 83605; 84703; 85007; 85025; 85027; 96374; J1100; J1596; J1630; J2250; J2405; J2710; J3010; J7120; Q9967